=== PATIENT | female | born 1945 | race Caucasian/White ===

== ENCOUNTER 2018-06-13 09:14 | Inpatient (IN) | payer OTHER ==
[~2018-06-13] VITALS: Ht 167.6 cm; Wt 83.2 kg
[2018-06-13 11:12] LABS: Basophils # (auto) 0.1 uL; Basophils % (auto) 0.6 % (0.0-2.0); Eosinophils # (auto) 0.1 uL; Eosinophils % (auto) 0.8 % (0.0-7.0); Hematocrit 42.3 % (36.0-46.0); Hemoglobin 14.1 g/dL (12.2-16.2); Lymphocytes # (auto) 0.9 uL; Lymphocytes % (auto) 7.5 % (10.0-50.0); Mean Corpuscular Hemoglobin 28.9 pg (28.0-32.0); Mean Corpuscular Hgb Conc. 33.4 g/dL (32.0-36.0); Mean Corpuscular Volume 86.5 fL (80.0-100.0); Monocytes # (auto) 0.7 uL; Monocytes % (auto) 5.9 % (0.0-12.0); Neutrophils # (auto) 10.7 uL; Neutrophils % (auto) 85.2 % (37.0-80.0); Platelet Count (auto) 343 10^3/uL (140-450); Red Blood Cells 4.89 10^6/uL (4.0-5.20); Red Cell Distribution Width 13.5 % (11.8-14.3); White Blood Cell 12.5 10^3/uL (4.4-10.8)
[2018-06-13 11:30] LABS: Albumin 3.2 g/dL (3.4-5.0); Calcium 8.8 mg/dL (8.5-10.1); Magnesium 1.9 mg/dL (1.6-2.6); Potassium 3.1 mmol/L (3.5-5.1)
[2018-06-13 11:35] LABS: BUN/Creatinine Ratio 18.8; Bilirubin, Total 0.4 mg/dL (0.2-1.0); Total Protein 7.3 g/dL (6.4-8.2)
[2018-06-13] MEDS ORDERED: SODIUM CHLORIDE 0.9% 1,000 ML IVB ONE (12:28)
[2018-06-13] MEDS ORDERED: ONDANSETRON HCL 4 MG/2 ML VIAL IV ONE (12:30)
[2018-06-13 13:26] LABS: Amylase 38 U/L (25-115); Lipase 242 U/L (73-393)
[2018-06-13 13:45] LABS: Partial Thromboplastin Time 29.8 sec (23.78-33.04); Prothrombin Time 10.7 sec (9.27-12.13)
[2018-06-13] MEDS ORDERED: BENA40TA7 PO (14:40)
[2018-06-13] MEDS ORDERED: ATOR20TA PO (14:40)
[2018-06-13] MEDS ORDERED: METF-371 PO (14:40)
[2018-06-13] MEDS ORDERED: PANTOPRAZOLE 40 MG/10 ML VIAL IV ONE (14:45)
[2018-06-13] MEDS ORDERED: POTASSIUM EFFERVESENT TAB 25 MEQ PO ONE (14:45)
[2018-06-13] MEDS ORDERED: cefTRIAXone 1GM/50ML D5W 50 ML IV ONE (14:45)
[2018-06-13] MEDS ORDERED: FAMOTIDINE (10MG/ML) 2ML VL IV ONE (14:45)
[2018-06-13] MEDS ORDERED: DOCUSATE SOD 100 MG CAP PO PRN (15:00)
[2018-06-13] MEDS ORDERED: NITROGLYCERIN 0.4 MG SL TAB SL PRN (15:00)
[2018-06-13] MEDS ORDERED: MORPHINE SULFATE 4 MG/ML SYR/VIAL IV PRN (15:00)
[2018-06-13] MEDS ORDERED: POTASSIUM CHL 20MEQ/100ML 100 ML IV ONE (15:00)
[2018-06-13] MEDS ORDERED: ACETAMINOPHEN 325 MG TAB PO PRN (15:00)
[2018-06-13] MEDS ORDERED: HYDROcodone-ACET 5/325MG TAB PO PRN (15:00)
[2018-06-13] MEDS: SODIUM CHLORIDE 0.9% 1,000 ML IV SCH ×2 (15:24→23:09)
[2018-06-13] MEDS: MORPHINE SULFATE 4 MG/ML SYR/VIAL IV PRN ×2 (15:24→19:45)
[2018-06-13] MEDS: metroNIDAZOLE 500MG/100ML 100 ML IV SCH ×2 (18:21→23:39)
[2018-06-13] MEDS: ONDANSETRON HCL 4 MG/2 ML VIAL IV PRN (19:45)
[2018-06-13 20:45] VITALS: BP 158/119
--- NOTE | 2018-06-13 20:45 | NUR ---
Telemetry admit from ER KATLYNSTEPHANIE admitted to Telemetry unit after hand off tool received. Patient oriented to Shante Rose, primary RN, unit, room, bed, and unit policies regarding patient care and visiting hours. Patient now on continuous telemetry monitoring, tele box # 2 and telemetry reading on arrival to unit is Afib with St depresion at 76. Patient placed on bedside oxygen, weighed by bedscale and encouraged to call if they need something. All questions and concerns addressed, patient verbalized understanding.
[2018-06-13] MEDS: ATORVASTATIN 20 MG TAB PO SCH (22:15)
[2018-06-13] MEDS: TEMAZEPAM 15 MG CAP PO PRN (22:16)
--- NOTE | 2018-06-13 23:00 | NUR ---
Patient noted with open wound to left big toe. Wound consult placed in and picture taken per protocol.
[2018-06-14 02:06] VITALS: BP 158/119
--- NOTE | 2018-06-14 03:33 | NUR ---
Patient with Urine joey cx order. Specimen sample obtained and sent to lab via bullet.
[2018-06-14 04:00] LABS: Urine Bacteria FEW /hpf (None Seen); Urine Blood Negative /uL (Negative); Urine Hyaline Cast FEW /lpf (0 - 2); Urine Mucus FEW (None Seen); Urine WBC 37 /hpf (0 - 5)
[2018-06-14 05:31] VITALS: BP 118/65
[2018-06-14] MEDS: metroNIDAZOLE 500MG/100ML 100 ML IV SCH ×3 (06:31→17:39)
[2018-06-14 06:45] LABS: Basophils # (auto) 0 uL; Basophils % (auto) 0.5 % (0.0-2.0); Eosinophils # (auto) 0.1 uL; Eosinophils % (auto) 1.6 % (0.0-7.0); Hematocrit 33.8 % (36.0-46.0); Hemoglobin 11.4 g/dL (12.2-16.2); Lymphocytes # (auto) 0.7 uL; Lymphocytes % (auto) 8.3 % (10.0-50.0); Mean Corpuscular Hemoglobin 29.4 pg (28.0-32.0); Mean Corpuscular Hgb Conc. 33.8 g/dL (32.0-36.0); Mean Corpuscular Volume 86.9 fL (80.0-100.0); Monocytes # (auto) 0.6 uL; Monocytes % (auto) 7.5 % (0.0-12.0); Neutrophils # (auto) 6.6 uL; Neutrophils % (auto) 82.1 % (37.0-80.0); Nucleated Red Blood Cells % 0.1 %; Platelet Count (auto) 229 10^3/uL (140-450); Red Blood Cells 3.89 10^6/uL (4.0-5.20); Red Cell Distribution Width 13.4 % (11.8-14.3)
[2018-06-14 06:48] LABS: Albumin 2.4 g/dL (3.4-5.0); Calcium 7.7 mg/dL (8.5-10.1)
[2018-06-14 06:51] LABS: BUN/Creatinine Ratio 17.5; Bilirubin, Total 0.4 mg/dL (0.2-1.0); Total Protein 5.4 g/dL (6.4-8.2)
[2018-06-14 07:11] LABS: Potassium 2.6 mmol/L (3.5-5.1)
--- NOTE | 2018-06-14 07:27 | NUR ---
Paged MOISÉS Dutton for critical lab result, Potassium at 2.6. Endorsed to am shift RN.
--- NOTE | 2018-06-14 07:30 | NUR ---
TELEPHONE ORDERS Telephone order read back for Potassium 40 PO x1 dose. Orders noted.
[2018-06-14] MEDS ORDERED: POTASSIUM CHL 20 Meq TABLET PO ONE (07:45)
--- NOTE | 2018-06-14 08:00 | NUR ---
C.DIFF Sample and form completed, sent to lab.
[2018-06-14 08:30] VITALS: BP 127/67
[2018-06-14] MEDS: SODIUM CHLORIDE 0.9% 1,000 ML IV SCH ×2 (08:37→15:49)
[2018-06-14] MEDS: cefTRIAXone 1GM/50ML D5W 50 ML IV SCH (08:39)
[2018-06-14] MEDS ORDERED: FAMOTIDINE (10MG/ML) 2ML VL IV SCH (10:00)
[2018-06-14] MEDS ORDERED: PANTOPRAZOLE 40 MG/10 ML VIAL IV SCH (10:00)
[2018-06-14] MEDS ORDERED: POTASSIUM EFFERVESENT TAB 25 MEQ PO ONE ×2 (10:15→20:00)
[2018-06-14] MEDS ORDERED: DEXTROSE (50%) 50ML SYRG IV PRN (10:45)
[2018-06-14] MEDS: SUCRALFATE 1 GM/10 ML ORAL SUSP PO SCH ×3 (10:49→21:02)
[2018-06-14] MEDS: BENAZEPRIL HCL 10 MG TAB PO SCH (10:50)
[2018-06-14] MEDS: MULTIPLE VITAMIN TAB PO SCH (10:50)
[2018-06-14] MEDS: InsuLIN REG 1unit/0.01ml Soln (100units/ml) SC SCH ×3 (11:30→21:02)
[2018-06-14] MEDS: ACCU-CHEK COMFORT CURVE STRIP VI SCH ×3 (11:30→21:02)
--- NOTE | 2018-06-14 11:42 | NUR ---
WOUND CARE NOTE: Wound care in to see patient per wound care request regarding "Diabetic Ulcer to left big toe" that are noted present on admission. Bedside nurse took photograph of patient's wound upon admission for reference. Patient is 73 y/o female with admitting diagnosis of Abdominal Pain, N/D/D. Patient is resting in bed in Rm 249B. Patient is awake, alert and fully oriented. Patient denies any pain at this time. She's ambulatory and self turn and reposition. Her current Baljinder score is 21. Noted 0.8x0.8cm open full thickness diabetic foot ulcer with no measurable depth to patient's L great toe plantar area. Wound is pale pink with yellow slough, drew wound is yellow hyperkeratotic skin, scant serous drainage noted, no odor noted. Patient states that L great toe wound is actually smaller and better. Patient and family reported that patient has had the wound fro eight months. They continued further that patient is under the care of guitar teacher in [place]. Patient states that wound was once closed and just reopen recently due to walking and rubbing. Patient and family education given regarding wound care and Diabetic Foot care, verbalized understanding. Cleansed Lt. plantar great toe wound with NS, patted dry with sterile gauze, applied Thera honey gel, covered with Opti foam and secured with CoBan. Patient tolerated well. Patient denies any other wound. RECOMMENDATION: EOD/PRN dressing change to Lt. great toe wound per MD order, dietary consult, continue monitoring by wound care while patient is hospitalized. Addendum: 06/14/18 at 1539 by Salima Akhtar RN Amended: Links added.
[2018-06-14 12:15] VITALS: BP 124/71
[2018-06-14 14:30] LABS: Calcium 7.6 mg/dL (8.5-10.1); Potassium 3.2 mmol/L (3.5-5.1)
--- NOTE | 2018-06-14 15:30 | NUR ---
PT REPORTS THAT SHE IS DOING FINE AND DOES NOT NEED P.T.
[2018-06-14 16:33] VITALS: BP 106/52
[2018-06-14] MEDS: MORPHINE SULFATE 4 MG/ML SYR/VIAL IV PRN (16:52)
--- NOTE | 2018-06-14 19:30 | NUR ---
Opening shift note Patient in bed sleeping with eyes closed, easily arousable to verbal stimuli. patient's respiration even and unlabored, denies pain and discomfort at this time. Plan of care discussed, patient verbalized understanding. All needs attended, will continue to monitor.
[2018-06-14] MEDS: ATORVASTATIN 20 MG TAB PO SCH (21:02)
[2018-06-14] MEDS: TEMAZEPAM 15 MG CAP PO PRN ×2 (21:02→22:35)
[2018-06-14 22:00] VITALS: BP 123/74
[2018-06-15] MEDS: metroNIDAZOLE 500MG/100ML 100 ML IV SCH ×3 (00:52→13:12)
[2018-06-15] MEDS: SODIUM CHLORIDE 0.9% 1,000 ML IV SCH ×2 (00:52→11:22)
[2018-06-15 05:00] VITALS: BP 135/68
[2018-06-15] MEDS: MORPHINE SULFATE 4 MG/ML SYR/VIAL IV PRN (06:11)
[2018-06-15] MEDS: SUCRALFATE 1 GM/10 ML ORAL SUSP PO SCH ×2 (06:29→13:17)
[2018-06-15] MEDS: ACCU-CHEK COMFORT CURVE STRIP VI SCH ×2 (06:30→13:15)
[2018-06-15] MEDS: InsuLIN REG 1unit/0.01ml Soln (100units/ml) SC SCH ×2 (06:30→13:16)
[2018-06-15 06:36] LABS: Basophils # (auto) 0 uL; Basophils % (auto) 0.6 % (0.0-2.0); Eosinophils # (auto) 0.4 uL; Eosinophils % (auto) 4.7 % (0.0-7.0); Hemoglobin 11.8 g/dL (12.2-16.2); Lymphocytes # (auto) 0.8 uL; Lymphocytes % (auto) 9.6 % (10.0-50.0); Mean Corpuscular Hemoglobin 29.3 pg (28.0-32.0); Mean Corpuscular Hgb Conc. 33.7 g/dL (32.0-36.0); Monocytes # (auto) 0.5 uL; Monocytes % (auto) 6.3 % (0.0-12.0); Neutrophils # (auto) 6.3 uL; Neutrophils % (auto) 78.8 % (37.0-80.0); Nucleated Red Blood Cells % 0.1 %; Platelet Count (auto) 211 10^3/uL (140-450); Red Blood Cells 4.03 10^6/uL (4.0-5.20); Red Cell Distribution Width 13.6 % (11.8-14.3)
[2018-06-15 07:03] LABS: Calcium 8.1 mg/dL (8.5-10.1); Potassium 3.4 mmol/L (3.5-5.1)
[2018-06-15 07:06] LABS: BUN/Creatinine Ratio 10.9
--- NOTE | 2018-06-15 08:00 | NUR ---
Opening Shift Note Assumed care of patient, awake and alert. No S/S of distress/SOB or pain. Instructed on POC and to call for assist PRN, will continue to monitor for changes Q1hr and PRN.
[2018-06-15] MEDS ORDERED: SODIUM CHLORIDE LOCK 10 ML ONE (08:38)
[2018-06-15] MEDS ORDERED: LIDOCAINE VISCOUS 2% 15ML UD ONE (08:38)
[2018-06-15] MEDS ORDERED: diphenhdrAMINE HCL 50 MG/1 ML VL ONE (08:39)
[2018-06-15 09:00] VITALS: BP 165/92
[2018-06-15] MEDS: ONDANSETRON HCL 4 MG/2 ML VIAL IV PRN (09:26)
--- NOTE | 2018-06-15 10:45 | NUR ---
OR Patient taken to OR. accompanied patient.
[2018-06-15] MEDS: fentaNYL CITRATE 100 MCG/2 ML VL ONE ×2 (11:18→11:21)
[2018-06-15] MEDS: MIDAZOLAM HCL 5 MG/ML-1ML VIAL ONE ×2 (11:18→11:21)
[2018-06-15] MEDS: cefTRIAXone 1GM/50ML D5W 50 ML IV SCH (11:22)
--- NOTE | 2018-06-15 12:11 | NUR ---
ECHO/RETURN TO UNIT Patient s/p EGD. Patient has no complaints of pain or s/s distress. electroencephalograph technician bedside to perform test.
[2018-06-15] MEDS: MULTIPLE VITAMIN TAB PO SCH (13:16)
[2018-06-15] MEDS: BENAZEPRIL HCL 10 MG TAB PO SCH (13:17)
--- NOTE | 2018-06-15 13:50 | NUR ---
C.DIFF Received call from microbiology stating patient positive for c.diff. Dr Silva made aware, states he will be over to see patient and review chart. Will notify rn hemodialysis charge and transfer patient to private room.
[2018-06-15 15:00] VITALS: BP 144/42
--- NOTE | 2018-06-15 18:47 | NUR ---
Discharge instructions given as ordered. Encourage to follow up with PMD as instructed. All questions and concerns addressed. Patient verbalized understanding. Medication reconciliation form completed and copy given to patient. IV removed with catheter intact, pressure dressing applied. Wound photos taken per protocol. Telemetry unit returned to ICU.
[2018-06-15] MEDS ORDERED: PANTOPRAZOLE 40 MG TAB PO SCH (22:00)
== END 2018-06-15 19:07 | disposition home or self-care (01) | DRG 872 ==
LOC: ER 09:14 → TELE 14:10 → TELE-EAST 20:55
PROVIDERS: ADMIT Internal Medicine; ATTEND Internal Medicine
PROC: 0DB68ZX Excision of Stomach, Via Natural or Artificial Opening Endoscopic, Diagnostic (ICD-10-PCS; principal; 2018-06-15 11:16)
DX: A41.9 Sepsis, unspecified organism (principal); D68.69 Other thrombophilia; I48.92 Unspecified atrial flutter; J98.11 Atelectasis; N39.0 Urinary tract infection, site not specified; A04.72 Enterocolitis due to Clostridium difficile, not specified as recurrent; E44.0 Moderate protein-calorie malnutrition; K26.3 Acute duodenal ulcer without hemorrhage or perforation; I13.10 Hypertensive heart and chronic kidney disease without heart failure, with stage 1 through stage 4 chronic kidney disease, or unspecified chronic kidney disease; E11.21 Type 2 diabetes mellitus with diabetic nephropathy; E11.22 Type 2 diabetes mellitus with diabetic chronic kidney disease; E78.5 Hyperlipidemia, unspecified; E86.0 Dehydration; K29.70 Gastritis, unspecified, without bleeding; M41.9 Scoliosis, unspecified; E87.6 Hypokalemia; I48.91 Unspecified atrial fibrillation; N18.3 Chronic kidney disease, stage 3 (moderate); K29.80 Duodenitis without bleeding; Z68.29 Body mass index [BMI] 29.0-29.9, adult
CPT/HCPCS: 36415; 43239; 71045; 74176; 80048; 80053; 81001; 82150; 82962; 83036; 83605; 83690; 83735; 84484; 85025; 85610; 85730; 86850; 86900; 86901; 87040; 87045; 87086; 87493; 87899; 93005; 93306; 94761; 96361; 96365; 96375; A6257; C9113; G0378; J0696; J1815; J2250; J2405; J3480; J3490